=== PATIENT | male | born 1995 | race Two or more races ===

== ENCOUNTER 2017-05-20 18:29 | Emergency (ER) | payer MEDICAID, OTHER ==
[~2017-05-20] VITALS: Ht 165.1 cm; Wt 68.0 kg
[2017-05-20 18:40] VITALS: BP 120/82
== END 2017-05-20 20:10 | disposition left against medical advice (07) ==
LOC: ER 18:36
DX: R51 Headache (principal); M25.532 Pain in left wrist; W00.0XXA Fall on same level due to ice and snow, initial encounter; Y93.23 Activity, snow (alpine) (downhill) skiing, snowboarding, sledding, tobogganing and snow tubing; Y92.89 Other specified places as the place of occurrence of the external cause; Y99.8 Other external cause status; Z53.21 Procedure and treatment not carried out due to patient leaving prior to being seen by health care provider
CPT/HCPCS: 70450